=== PATIENT | female | born 1955 | race Caucasian/White ===

== ENCOUNTER 2020-04-19 12:00 | Observation (INO) ==
[~2020-04-19 12:00] MED LIST: Buffered Lidocaine 1% SYRIN 1 ml INTRADERM ONE; Naloxone 0.4 mg VIAL 0.4 mg/ml 1 ml VIAL IV PRN; Prochlorperazine 5 mg/ml 2 ml VIAL (10 mg) IV PRN; diPHENhydraMINE IV 50 MG/ML 1 ml VIAL (BENADRYL) IV PRN
[2020-04-19] MEDS ORDERED: EPHEDrine (Pressors) 50 MG/ML VIAL ONE (12:13)
[2020-04-19] MEDS ORDERED: fentaNYL 100 mcg/2 ml 50 MCG/ML VIAL ONE ×2 (12:13→17:18)
[2020-04-19] MEDS ORDERED: Succinylcholine 200 mg VIAL 20 mg/ml 10 ml VIAL (200 mg) ONE (12:13)
[2020-04-19] MEDS ORDERED: Midazolam 2 mg/2 ml VIAL 1 mg/ml 2 ml VIAL (2 mg) ONE (12:13)
[2020-04-19] MEDS ORDERED: Lidocaine 2% PF 5 ML VIAL ONE (12:13)
[2020-04-19] MEDS ORDERED: Dexamethasone IV 4 MG/ML VIAL 1 ml VIAL ONE (12:13)
[2020-04-19] MEDS ORDERED: Ondansetron 4 mg VIAL 2 MG/ML 2 ml VIAL ONE (12:13)
[2020-04-19] MEDS ORDERED: Propofol 10 MG/ML 20 ML BTL ONE (12:13)
[2020-04-19] MEDS ORDERED: Glycopyrrolate IV 0.2 MG/ML 1 ML VIAL ONE (12:13)
[2020-04-19] MEDS ORDERED: ceFAZolin 2 GM PREMIX in ORs 2 GM/50 ML BAG ONE (12:35)
[2020-04-19] MEDS: Lactated Ringers 1000 ml BAG 1,000 ML IV SCH ×3 (12:55→18:53)
[2020-04-19] MEDS ORDERED: Acetaminophen IV 1 GM/100ML 100 ML ONE (13:55)
[2020-04-19] MEDS ORDERED: Rocuronium 50 mg VIAL 10 mg/ml 5 ml VIAL (50 mg) ONE (13:55)
[2020-04-19] MEDS ORDERED: diPHENhydraMINE IV 50 MG/ML 1 ml VIAL (BENADRYL) IV PRN (16:32)
[2020-04-19] MEDS ORDERED: Ondansetron ODT 4 mg TAB 4 MG TAB PO PRN (16:32)
[2020-04-19] MEDS ORDERED: Ondansetron 4 mg VIAL 2 MG/ML 2 ml VIAL IV PRN (16:32)
[2020-04-19] MEDS ORDERED: Lactulose 30 ml UDC PO PRN (16:32)
[2020-04-19] MEDS ORDERED: oxyCODONE/Acetamin 5/325 mg TAB PO PRN (16:32)
[2020-04-19] MEDS ORDERED: Magnesium Hydroxide LIQ 30 ML UDC PO PRN (16:32)
[2020-04-19] MEDS ORDERED: diPHENhydraMINE 25 mg TAB PO PRN (16:32)
[2020-04-19] MEDS ORDERED: RIZATRIPTAN 10 MG PO PRN (16:35)
[2020-04-19] MEDS: fentaNYL 100 mcg/2 ml 50 MCG/ML VIAL IV PRN ×4 (17:19→17:49)
[2020-04-19] MEDS: HYDROmorphone 1 MG/1 ML SYRINGE IV PRN ×5 (17:50→18:15)
[2020-04-19] MEDS ORDERED: HYDROmorphone 1 MG/1 ML SYRINGE ONE (17:52)
[2020-04-19] MEDS ORDERED: MAGNESIUM HYDROXIDE PO SCH (21:00)
[2020-04-19] MEDS ORDERED: CALCIUM CARBONATE PO SCH (21:00)
[2020-04-19] MEDS ORDERED: [UNRECOGNIZED DRUG - OTHER] PO SCH (21:00)
[2020-04-19] MEDS ORDERED: FAMOTIDINE PO SCH (21:00)
[2020-04-19] MEDS: Magnesium Hydroxide LIQ 30 ML UDC PO SCH (21:26)
[2020-04-19] MEDS: ceFAZolin 1 GM ADVAN(*) 1 GM in NS 0.9% 50 ML 50 ML IVPB SCH (23:07)
[2020-04-20] MEDS: oxyCODONE/Acetamin 5/325 mg TAB PO PRN ×4 (01:31→14:59)
[2020-04-20 04:54] LABS: Hematocrit 37 % (35-47); Hemoglobin 12.6 g/dL (12.0-16.0); Mean Platelet Volume 7.5 fL (7.4-10.4); Platelet Count 284 10^3/uL (150-450)
[2020-04-20 05:13] LABS: Calcium 8.5 mg/dL (8.6-10.3); EGFR African American 87.7 (>60); EGFR Non-African American 72.4 (>60); Potassium 3.9 mmol/L (3.5-5.0)
[2020-04-20] MEDS: ceFAZolin 1 GM ADVAN(*) 1 GM in NS 0.9% 50 ML 50 ML IVPB SCH ×2 (05:59→14:07)
[2020-04-20] MEDS: Lactated Ringers 1000 ml BAG 1,000 ML IV SCH (06:00)
[2020-04-20] MEDS: Magnesium Hydroxide LIQ 30 ML UDC PO SCH (08:36)
[2020-04-20] MEDS ORDERED: Vitamin THERAPEUTIC TAB PO SCH (09:00)
[2020-04-20] MEDS ORDERED: RIZATRIPTAN 10 MG PO PRN (09:00)
[2020-04-20 11:10] VITALS: BP 103/49
== END 2020-04-20 15:50 | disposition home or self-care (01) ==
LOC: OR 12:00 → INTOOBSV 18:46 → SSU 18:46
PROVIDERS: ADMIT Orthopaedic Surgery Adult Reconstructive Orthopaedic Surgery; ATTEND Orthopaedic Surgery Adult Reconstructive Orthopaedic Surgery

== ENCOUNTER 2020-09-18 08:38 | Observation (INO) ==
[~2020-09-18 08:38] MED LIST changes: +Dexamethasone IV 4 MG/ML VIAL 1 ml VIAL IV SLOW PU ONE; +Dexamethasone IV 4 MG/ML VIAL 1 ml VIAL ONE; +Famotidine IV 10 MG/ML 2 ml VIAL (20 mg) IV ONE; +Famotidine IV 10 MG/ML 2 ml VIAL (20 mg) ONE; +Lactated Ringers 1000 ml BAG 1,000 ML IV SCH; -Naloxone 0.4 mg VIAL 0.4 mg/ml 1 ml VIAL IV PRN; -Prochlorperazine 5 mg/ml 2 ml VIAL (10 mg) IV PRN; +Tranexamic Acid 1 GM/100ML BAG 0 MG/0 ML BAG IV ONE; +ceFAZolin 2 GM PREMIX 0 GM/0 ML BAG ONE; -diPHENhydraMINE IV 50 MG/ML 1 ml VIAL (BENADRYL) IV PRN
[2020-09-18] MEDS ORDERED: Propofol 10 MG/ML 20 ML BTL ONE (11:21)
[2020-09-18] MEDS ORDERED: fentaNYL 100 mcg/2 ml 50 MCG/ML VIAL ONE ×4 (11:21→16:15)
[2020-09-18] MEDS ORDERED: Midazolam 2 mg/2 ml VIAL 1 mg/ml 2 ml VIAL (2 mg) ONE (11:21)
[2020-09-18] MEDS ORDERED: Lidocaine 2% PF 5 ML VIAL ONE (11:21)
[2020-09-18] MEDS ORDERED: Rocuronium 50 mg VIAL 10 mg/ml 5 ml VIAL (50 mg) ONE (11:22)
[2020-09-18] MEDS ORDERED: ROPIVACAINE 5 MG/ML 30 ML BTL (0.5%) ONE (11:25)
[2020-09-18] MEDS ORDERED: Ketamine HCL 50 mg/ml 10 ml VIAL (500 MG) ONE (11:47)
[2020-09-18] MEDS ORDERED: Acetaminophen IV 1 GM/100ML 100 ML ONE (12:10)
[2020-09-18] MEDS ORDERED: Naloxone 0.4 mg VIAL 0.4 mg/ml 1 ml VIAL IV PRN (12:40)
[2020-09-18] MEDS ORDERED: Prochlorperazine 5 mg/ml 2 ml VIAL (10 mg) IV PRN (12:40)
[2020-09-18] MEDS ORDERED: HYDROmorphone 1 MG/1 ML SYRINGE ONE ×2 (13:09→14:49)
[2020-09-18] MEDS ORDERED: Sugammadex 500 MG/5 ML 5 ml VIAL IV PUSH ONE (14:12)
[2020-09-18] MEDS ORDERED: Phenylephrine IV 10 MG/ML 1 ml VIAL ONE (14:26)
[2020-09-18] MEDS ORDERED: Ondansetron 4 mg VIAL 2 MG/ML 2 ml VIAL ONE (14:26)
[2020-09-18] MEDS ORDERED: Phenylephrine 40 mcg/mL 10mL (400mcg) SYRINGE ONE (14:27)
[2020-09-18] MEDS ORDERED: Magnesium Hydroxide LIQ 30 ML UDC PO PRN (14:53)
[2020-09-18] MEDS ORDERED: Morphine 2 MG/ML SYRINGE IV PRN (14:53)
[2020-09-18] MEDS ORDERED: Ondansetron 4 mg VIAL 2 MG/ML 2 ml VIAL IV PRN (14:53)
[2020-09-18] MEDS ORDERED: Lactulose 30 ml UDC PO PRN (14:53)
[2020-09-18] MEDS ORDERED: diPHENhydraMINE IV 50 MG/ML 1 ml VIAL (BENADRYL) IV PRN (14:53)
[2020-09-18] MEDS ORDERED: diPHENhydraMINE 25 mg TAB PO PRN (14:53)
[2020-09-18] MEDS ORDERED: Ondansetron ODT 4 mg TAB 4 MG TAB PO PRN (14:53)
[2020-09-18] MEDS: fentaNYL 100 mcg/2 ml 50 MCG/ML VIAL IV PRN ×5 (15:19→16:16)
[2020-09-18] MEDS ORDERED: Morphine 4 MG/ML VIAL (1 ml) ONE (16:01)
[2020-09-18] MEDS: Morphine 4 MG/ML VIAL (1 ml) IV PRN ×2 (16:02→16:09)
[2020-09-18] MEDS: Lactated Ringers 1000 ml BAG 1,000 ML IV SCH (17:22)
[2020-09-18] MEDS ORDERED: Rizatriptan 5 mg TAB (NF) PO PRN (17:36)
[2020-09-18] MEDS: Magnesium Hydroxide LIQ 30 ML UDC PO SCH (20:28)
[2020-09-18] MEDS: ceFAZolin 1 GM ADVAN 1 GM in NS 0.9% 50 ML 50 ML IVPB SCH (20:30)
[2020-09-18] MEDS ORDERED: Calcium Carb (TUMS) 500 mg CHEW TAB PO SCH (21:00)
[2020-09-18] MEDS ORDERED: [UNRECOGNIZED DRUG - OTHER] PO SCH (21:00)
[2020-09-18] MEDS ORDERED: FAMOTIDINE PO SCH (21:00)
[2020-09-18] MEDS ORDERED: CALCIUM CARBONATE PO SCH (21:00)
[2020-09-18] MEDS ORDERED: MAGNESIUM HYDROXIDE PO SCH (21:00)
[2020-09-19] MEDS: Lactated Ringers 1000 ml BAG 1,000 ML IV SCH ×2 (03:35→16:54)
[2020-09-19] MEDS: ceFAZolin 1 GM ADVAN 1 GM in NS 0.9% 50 ML 50 ML IVPB SCH ×2 (04:01→14:01)
[2020-09-19 06:22] LABS: Hematocrit 33 % (35-47); Hemoglobin 10.9 g/dL (12.0-16.0); Mean Platelet Volume 7.8 fL (7.4-10.4); Platelet Count 258 10^3/uL (150-450)
[2020-09-19 06:36] LABS: BUN/Creatinine Ratio 18.1 (8-20); Calcium 8.6 mg/dL (8.6-10.3); EGFR Non-African American 81.8 (>60); Potassium 4.1 mmol/L (3.5-5.0)
[2020-09-19] MEDS ORDERED: Vitamin THERAPEUTIC TAB PO SCH (09:00)
[2020-09-19] MEDS: Magnesium Hydroxide LIQ 30 ML UDC PO SCH (09:21)
[2020-09-19] MEDS ORDERED: NS 0.9% 500 ml BAG 500 ML IV SCH (11:00)
[2020-09-19 18:22] VITALS: BP 123/62
== END 2020-09-19 18:30 | disposition home or self-care (01) ==
LOC: OR 08:38 → SSU 08:38
PROVIDERS: ADMIT Orthopaedic Surgery Adult Reconstructive Orthopaedic Surgery; ATTEND Orthopaedic Surgery Adult Reconstructive Orthopaedic Surgery